=== PATIENT | female | born 1940 | race Two or more races ===

== ENCOUNTER 2023-01-03 23:29 | Inpatient (IN) | payer OTHER ==
[~2023-01-03] VITALS: Ht 160 cm; Wt 49.9 kg
[2023-01-03] MEDS ORDERED: COZAAR25 MG (23:33)
[2023-01-04 02:02] LABS: HEMOGLOBIN 10.7 g/dL (12.0-15.00); MEAN CELL VOLUME 90.8 fL (80.00-100.00); MEAN CORPUSCULAR HEMOGLOBIN 30.4 pg (27.00-32.0); MEAN CORPUSCULAR HGB CONC 33.5 g/dl (32.0-36.0); PLATELET COUNT 318 K/uL (150-450); RED BLOOD COUNT 3.53 M/uL (4.00-6.00); RED CELL DISTRIBUTION WIDTH 13.3 % (11.5-14.5)
[2023-01-04 02:23] LABS: ALBUMIN 2.1 gm/dL (3.4-5.0); BILIRUBIN TOTAL 0.45 mg/dL (0.3-1.2); CALCIUM 10.2 mg/dL (8.5-10.1); CREATININE SERUM 0.7 mg/dL (0.55-1.02); GFR 80.31; GLOBULINA 4.4 G/DL (2.4-3.5); POTASSIUM 4.67 mEq/L (3.5-5.1); TOTAL PROTEIN 6.5 gm/dL (6.4-8.2)
[2023-01-04 09:10] LABS: PH,URINE 5.5 (5.0-8.0); URINE APPEARANCE Cloudy; URINE BILIRRUBIN Negative (NEGATIVE); URINE BLOOD Negative; URINE COLOR Dark Yellow; URINE GLUCOSE Negative (NEGATIVE); URINE LEUKOCYTE Small; URINE NITRATE Negative; URINE PROTEIN Trace (NEGATIVE)
[2023-01-04 09:11] LABS: URINE BACTERIA 437.1 uL (0.0-1933); URINE EPITHELIAL CELLS 41.1 uL (0.0-38.8); URINE RBC 12.7 uL (0.0-20.8)
[2023-01-04 20:36] LABS: INR 1.14; PROTHROMBIN TIME 11.9 SECONDS (9.0-11.5)
[2023-01-04 20:55] LABS: PARTIAL THROMBOPLASTIN TIME 40.9 SECONDS (22.0-34.0)
[2023-01-05 11:17] LABS: INR 1.16
[2023-01-05 11:20] LABS: PARTIAL THROMBOPLASTIN TIME 38.7 SECONDS (22.0-34.0)
[2023-01-06 07:34] LABS: HEMATOCRIT 31.2 % (36.0-45.00); HEMOGLOBIN 10.5 g/dL (12.0-15.00); MEAN CELL VOLUME 91.9 fL (80.00-100.00); MEAN CORPUSCULAR HEMOGLOBIN 30.8 pg (27.00-32.0); MEAN CORPUSCULAR HGB CONC 33.6 g/dl (32.0-36.0); PLATELET COUNT 326 K/uL (150-450); RED CELL DISTRIBUTION WIDTH 13.5 % (11.5-14.5)
[2023-01-06 07:57] LABS: ALBUMIN 1.7 gm/dL (3.4-5.0); BILIRUBIN TOTAL 0.3 mg/dL (0.3-1.2); CALCIUM 9.1 mg/dL (8.5-10.1); GFR 231.21; GLOBULINA 3.1 G/DL (2.4-3.5); POTASSIUM 4.38 mEq/L (3.5-5.1); TOTAL PROTEIN 4.8 gm/dL (6.4-8.2)
[2023-01-06 07:58] LABS: CREATININE SERUM 0.28 mg/dL (0.55-1.02)
[2023-01-06] MEDS ORDERED: SERTRALINE HCL50 MG PO (15:15)
== END 2023-01-06 21:15 | disposition home or self-care (01) | DRG 641 ==
LOC: ER 23:29 → MEDJ 01-04 19:19
PROVIDERS: General Practice; ADMIT Internal Medicine; ATTEND Internal Medicine
PROC: B020ZZZ Computerized Tomography (CT Scan) of Brain (ICD-10-PCS; principal; 2023-01-04)
PROC: B345ZZZ Ultrasonography of Bilateral Common Carotid Arteries (ICD-10-PCS; 2023-01-04)
PROC: B348ZZZ Ultrasonography of Bilateral Internal Carotid Arteries (ICD-10-PCS; 2023-01-04)
PROC: B246ZZZ Ultrasonography of Right and Left Heart (ICD-10-PCS; 2023-01-04)
DX: E86.0 Dehydration (principal); Z68.1 Body mass index [BMI] 19.9 or less, adult; F32.2 Major depressive disorder, single episode, severe without psychotic features; R63.0 Anorexia; R45.3 Demoralization and apathy; F34.1 Dysthymic disorder; F03.90 Unspecified dementia, unspecified severity, without behavioral disturbance, psychotic disturbance, mood disturbance, and anxiety; R68.89 Other general symptoms and signs; C50.919 Malignant neoplasm of unspecified site of unspecified female breast; I10 Essential (primary) hypertension; E03.9 Hypothyroidism, unspecified

== ENCOUNTER 2023-01-14 23:53 | Inpatient (IN) | payer OTHER ==
[~2023-01-14] VITALS: Ht 154.9 cm; Wt 54.4 kg
[~2023-01-14 23:53] MED LIST: COZAAR25 MG; SERTRALINE HCL50 MG PO
[2023-01-15 02:03] LABS: HEMATOCRIT 31.1 % (36.0-45.00); MEAN CELL VOLUME 90.6 fL (80.00-100.00); MEAN CORPUSCULAR HGB CONC 33.3 g/dl (32.0-36.0); PLATELET COUNT 341 K/uL (150-450); RED BLOOD COUNT 3.43 M/uL (4.00-6.00); RED CELL DISTRIBUTION WIDTH 14.1 % (11.5-14.5)
[2023-01-15 02:29] LABS: PH,URINE 5.5 (5.0-8.0); URINE APPEARANCE Clear; URINE BILIRRUBIN Negative (NEGATIVE); URINE BLOOD Negative; URINE COLOR Dark Yellow; URINE GLUCOSE Negative (NEGATIVE); URINE LEUKOCYTE Negative; URINE NITRATE Negative; URINE PROTEIN Trace (NEGATIVE)
[2023-01-15 02:32] LABS: URINE BACTERIA 17.6 uL (0.0-1933); URINE EPITHELIAL CELLS 15.1 uL (0.0-38.8); URINE RBC 12.5 uL (0.0-20.8); URINE WBC 2.6 uL (0.0-23.2)
[2023-01-15 02:36] LABS: HEMOGLOBIN 10.4 g/dL (12.0-15.00); MEAN CORPUSCULAR HEMOGLOBIN 30.3 pg (27.00-32.0)
[2023-01-15 02:38] LABS: ALBUMIN 2.2 gm/dL (3.4-5.0); BILIRUBIN TOTAL 0.57 mg/dL (0.3-1.2); CALCIUM 11.4 mg/dL (8.5-10.1); CREATININE SERUM 0.61 mg/dL (0.55-1.02); GFR 94.13; GLOBULINA 4.3 G/DL (2.4-3.5); POTASSIUM 4.18 mEq/L (3.5-5.1); TOTAL PROTEIN 6.5 gm/dL (6.4-8.2)
[2023-01-15 03:15] LABS: URINE CRYSTALS MODERATE /HPF
[2023-01-15 13:41] LABS: AST/SGOT 309 U/L (15-37)
[2023-01-15 13:55] LABS: LDH 2222 U/L (84-246)
[2023-01-16 08:02] LABS: HEMATOCRIT 28.1 % (36.0-45.00); HEMOGLOBIN 9.4 g/dL (12.0-15.00); MEAN CELL VOLUME 90.6 fL (80.00-100.00); MEAN CORPUSCULAR HEMOGLOBIN 30.4 pg (27.00-32.0); MEAN CORPUSCULAR HGB CONC 33.6 g/dl (32.0-36.0); PLATELET COUNT 333 K/uL (150-450); RED CELL DISTRIBUTION WIDTH 14.3 % (11.5-14.5)
[2023-01-16 08:12] LABS: PH,URINE 5.5 (5.0-8.0); URINE APPEARANCE Cloudy; URINE BILIRRUBIN Negative (NEGATIVE); URINE BLOOD Negative; URINE COLOR Yellow; URINE GLUCOSE Negative (NEGATIVE); URINE LEUKOCYTE Negative; URINE NITRATE Negative; URINE PROTEIN Trace (NEGATIVE)
[2023-01-16 08:16] LABS: URINE BACTERIA 40.3 uL (0.0-1933); URINE EPITHELIAL CELLS 8.6 uL (0.0-38.8); URINE RBC 20.4 uL (0.0-20.8); URINE WBC 10.5 uL (0.0-23.2)
[2023-01-16 08:29] LABS: ERYTHROCYTE SEDIMENTATION RATE > 130 mm/hr
[2023-01-16 08:29] LABS: URINE CRYSTALS MODERATE /HPF
[2023-01-16 08:30] LABS: MYCOPLASMA PNEUMONIAE IGM NON REACTIVE (NO REACTIVE)
[2023-01-16 08:35] LABS: INR 1.26
[2023-01-16 08:42] LABS: PARTIAL THROMBOPLASTIN TIME 43.1 SECONDS (22.0-34.0)
[2023-01-16 08:52] LABS: BILIRUBIN TOTAL 0.87 mg/dL (0.3-1.2); BILIRUBIN,CONJUGATED 0.46 mg/dL (0.0-0.2); BILIRUBIN,UNCONJUGATED 0.41 mg/dL (0.0-0.6); CALCIUM 10.3 mg/dL (8.5-10.1); CREATININE SERUM 0.42 mg/dL (0.55-1.02); GFR 144.8; GLOBULINA 3.2 G/DL (2.4-3.5); MAGNESIUM 1.6 mg/dL (1.8-2.4); PHOSPHOROUS 2.8 mg/dL (2.5-4.9); POTASSIUM 3.99 mEq/L (3.5-5.1); T4 FREE 1.37 NG/ML (0.76-1.46); TOTAL PROTEIN 5.2 gm/dL (6.4-8.2); TSH 1.01 uIU/mL (0.358-3.74)
[2023-01-16 08:53] LABS: CHOL HDL RATIO 6.5 (0-5.0)
[2023-01-17 08:57] LABS: HEMATOCRIT 26.5 % (36.0-45.00); MEAN CELL VOLUME 90.6 fL (80.00-100.00); MEAN CORPUSCULAR HEMOGLOBIN 30.1 pg (27.00-32.0); MEAN CORPUSCULAR HGB CONC 33.2 g/dl (32.0-36.0); PLATELET COUNT 337 K/uL (150-450); RED BLOOD COUNT 2.92 M/uL (4.00-6.00); RED CELL DISTRIBUTION WIDTH 14.5 % (11.5-14.5)
[2023-01-17 09:07] LABS: ALBUMIN 2.1 gm/dL (3.4-5.0); BILIRUBIN TOTAL 0.57 mg/dL (0.3-1.2); CALCIUM 10.3 mg/dL (8.5-10.1); CREATININE SERUM 0.44 mg/dL (0.55-1.02); GFR 137.24; GLOBULINA 3.1 G/DL (2.4-3.5); POTASSIUM 4.02 mEq/L (3.5-5.1); TOTAL PROTEIN 5.2 gm/dL (6.4-8.2)
[2023-01-17 09:24] LABS: HEMOGLOBIN 8.8 g/dL (12.0-15.00)
[2023-01-17 10:27] LABS: URINE PROT QUANT 24HR 61.4 MG/DL
[2023-01-17 10:32] LABS: URINE PROT QUANT 24 HR 61.4 MG/24HR (42-225)
[2023-01-18 06:01] LABS: ABG PH 7.455 (7.35-7.45)
[2023-01-18 06:02] LABS: ABG PO2 78.8 mmHg (80-100); ABG pCO2 39.1 mmHg (35-45); BASE EXCESS 2.9 mmol/l; BICARBONATE 26.8 mmol/l (23-25); SaO2 96.3 %; allen test SATISFACTORY; o2 36 %; puncture site RADIAL RIGHT
[2023-01-18] MEDS ORDERED: GABAPENTIN300 M2 (10:25)
[2023-01-18] MEDS ORDERED: BUSPIRONE HCL10 MG (10:25)
[2023-01-18] MEDS ORDERED: LACOSAMIDE100 MG (10:25)
[2023-01-19 06:55] LABS: HEMATOCRIT 26.8 % (36.0-45.00); MEAN CELL VOLUME 92.1 fL (80.00-100.00); MEAN CORPUSCULAR HEMOGLOBIN 30.8 pg (27.00-32.0); MEAN CORPUSCULAR HGB CONC 33.4 g/dl (32.0-36.0); PLATELET COUNT 273 K/uL (150-450); RED BLOOD COUNT 2.91 M/uL (4.00-6.00); RED CELL DISTRIBUTION WIDTH 14.6 % (11.5-14.5)
[2023-01-19 07:01] LABS: ALBUMIN 1.9 gm/dL (3.4-5.0); BILIRUBIN TOTAL 1.07 mg/dL (0.3-1.2); CALCIUM 9.6 mg/dL (8.5-10.1); CREATININE SERUM 0.3 mg/dL (0.55-1.02); GFR 213.51; GLOBULINA 2.9 G/DL (2.4-3.5); MAGNESIUM 1.5 mg/dL (1.8-2.4); PHOSPHOROUS 2.4 mg/dL (2.5-4.9); POTASSIUM 3.57 mEq/L (3.5-5.1); TOTAL PROTEIN 4.8 gm/dL (6.4-8.2)
[2023-01-19 08:01] LABS: C-REACTIVE PROTEIN 12.2 MG/DL (0.00-0.29)
[2023-01-19 09:46] LABS: PLATELET ESTIMATE NORMAL (NORMAL)
[2023-01-19 13:16] LABS: PLATELET ESTIMATE NORMAL (NORMAL)
[2023-01-19 13:33] LABS: ob NEGATIVE (NEGATIVE)
[2023-01-19 13:51] LABS: FECAL LEUKOCYTES NEGATIVE (NEGATIVE)
[2023-01-20 11:34] LABS: ABG PH 7.333 (7.35-7.45); ABG pCO2 27.5 mmHg (35-45)
[2023-01-20 11:35] LABS: ABG PO2 368.1 mmHg (80-100); BASE EXCESS -9.9 mmol/l; BICARBONATE 14.2 mmol/l (23-25); SaO2 99.9 %; Tco2 15.1 mmol/l
[2023-01-20 11:36] LABS: allen test SATISFACTORY; o2 100 %; puncture site RADIAL RIGHT
[2023-01-22 00:05] LABS: quan ag 0 IU/mL (.); quant nil 0.03 IU/mL (.)
== END 2023-01-21 08:15 | disposition expired | DRG 853 ==
LOC: ER 23:53 → MEDJ 01-15 11:30
PROVIDERS: General Practice; Internal Medicine Infectious Disease; ADMIT Internal Medicine; ATTEND Internal Medicine
PROC: BB24ZZZ Computerized Tomography (CT Scan) of Bilateral Lungs (ICD-10-PCS; 2023-01-15)
PROC: 07B63ZX Excision of Left Axillary Lymphatic, Percutaneous Approach, Diagnostic (ICD-10-PCS; principal; 2023-01-18)
PROC: 0FB03ZX Excision of Liver, Percutaneous Approach, Diagnostic (ICD-10-PCS; 2023-01-18)
PROC: BF25ZZZ Computerized Tomography (CT Scan) of Liver (ICD-10-PCS; 2023-01-18)
PROC: B030Y0Z Magnetic Resonance Imaging (MRI) of Brain using Other Contrast, Unenhanced and Enhanced (ICD-10-PCS; 2023-01-18)
PROC: B54NZZZ Ultrasonography of Left Upper Extremity Veins (ICD-10-PCS; 2023-01-18)
PROC: 4A12X4Z Monitoring of Cardiac Electrical Activity, External Approach (ICD-10-PCS; 2023-01-20)
PROC: 3E0F7GC Introduction of Other Therapeutic Substance into Respiratory Tract, Via Natural or Artificial Opening (ICD-10-PCS; 2023-01-20)
PROC: 0BH18EZ Insertion of Endotracheal Airway into Trachea, Via Natural or Artificial Opening Endoscopic (ICD-10-PCS; 2023-01-20)
PROC: 5A1945Z Respiratory Ventilation, 24-96 Consecutive Hours (ICD-10-PCS; 2023-01-20)
DX: A41.9 Sepsis, unspecified organism (principal); J12.89 Other viral pneumonia; I82.891 Chronic embolism and thrombosis of other specified veins; C78.7 Secondary malignant neoplasm of liver and intrahepatic bile duct; C50.919 Malignant neoplasm of unspecified site of unspecified female breast; I10 Essential (primary) hypertension; R63.0 Anorexia; E86.0 Dehydration; E83.52 Hypercalcemia; E78.49 Other hyperlipidemia
CPT/HCPCS: 70545